=== PATIENT | female | born 1970 ===

== ENCOUNTER 2020-10-05 16:06 | Outpatient (CLI) | payer SELFPAY | END 2020-10-05 16:07 | disposition EMS.NT | LOC: EMS 16:06 | PROVIDERS: ATTEND Surgery | DX: R07.81 Pleurodynia (principal); S01.81XA Laceration without foreign body of other part of head, initial encounter; V43.52XA Car driver injured in collision with other type car in traffic accident, initial encounter; W22.10XA Striking against or struck by unspecified automobile airbag, initial encounter; Y93.89 Activity, other specified; Y92.413 State road as the place of occurrence of the external cause ==